=== PATIENT | female | born 1955 | race Caucasian/White ===

== ENCOUNTER 2024-08-25 16:53 | Inpatient (IN) ==
[2024-08-25] MEDS: cefTRIAXone 2 GM in DEXTROSE 5% IN WATER 50 ML IV ONE (18:20)
[2024-08-25] MEDS: metroNIDAZOLE 500 MG/100 ML BAG IV ONE (18:22)
[2024-08-25] MEDS: 0.9 % SODIUM CHLORIDE 1,000 ML IV SCH (18:23)
[2024-08-25] MEDS ORDERED: HYDROmorphone 0.5 MG/0.5 ML SYRINGE IV PRN (20:39)
[2024-08-25] MEDS: ACETAMINOPHEN 1,000 MG/100 ML BAG IV SCH (22:18)
[2024-08-25] MEDS: cefTRIAXone 1 GM VIAL ONE (23:03)
[2024-08-25] MEDS: METRONIDAZOLE IV ONE (23:03)
[2024-08-25] MEDS: cefTRIAXone 2 GM in DEXTROSE 5% IN WATER 50 ML IV SCH (23:04)
[2024-08-25] MEDS: metroNIDAZOLE 500 MG/100 ML BAG IV SCH (23:44)
[2024-08-26] MEDS: cefTRIAXone 2 GM in DEXTROSE 5% IN WATER 50 ML IV SCH (05:30)
[2024-08-26 06:05] LABS: Hematocrit 37.1 % (34.1-44.9); Hemoglobin 12.3 g/dL (11.2-15.7); Mean Cell Volume 91.4 fL (80.0-100.0); Mean Corpuscular HGB Conc 33.2 g/dL (31.0-36.0); Mean Platelet Volume 9.4 fL (8.8-12.5); Platelet Count 296 K/mcL (140-440); RBC 4.06 M/mcL (3.59-5.38); Red Cell Distribution Width 12.3 % (11.5-14.5)
[2024-08-26 09:02] LABS: Eosinophils % (Manual) 2 % (0-7); Lymphocytes % 28 % (15-49); Monocytes % (Manual) 3 % (1-12); Platelet Estimate NORMAL (Normal); RBC Morphology NORMAL (Normal); Segmented Neutrophils % 67 % (38-78)
[2024-08-26] MEDS: LISINOPRIL 20 MG TABLET PO SCH (20:27)
[2024-08-27] MEDS: ONDANSETRON 4 MG/2 ML VIAL IV PRN (03:51)
[2024-08-27] MEDS: HYDROCHLOROTHIAZIDE 25 MG TABLET PO SCH (08:15)
[2024-08-27] MEDS: ESTRADIOL 1 MG TABLET PO SCH (08:15)
[2024-08-27] MEDS: cefTRIAXone 2 GM in DEXTROSE 5% IN WATER 50 ML IV SCH (08:19)
[2024-08-27] MEDS ORDERED: PROPOFOL 200 MG/20 ML VIAL IV ONE (10:11)
[2024-08-27] MEDS ORDERED: SUGAMMADEX SODIUM 200 MG/2 ML VIAL IV ONE ×2 (10:11→12:08)
[2024-08-27] MEDS ORDERED: fentaNYL 100 MCG/2 ML VIAL ONE (10:11)
[2024-08-27] MEDS ORDERED: HYDROmorphone 0.5 MG/0.5 ML SYRINGE ONE (10:11)
[2024-08-27] MEDS ORDERED: DEXAMETHASONE 10 MG/ML VIAL ONE (10:13)
[2024-08-27] MEDS ORDERED: ONDANSETRON 4 MG/2 ML VIAL ONE (10:13)
[2024-08-27] MEDS ORDERED: LIDOCAINE 2% PF 5 ML VIAL ONE (10:13)
[2024-08-27] MEDS ORDERED: GLYCOPYRROLATE 0.2 MG/ML VIAL IV ONE (10:13)
[2024-08-27] MEDS ORDERED: ROCURONIUM 10 MG/ML ML IV ONE ×2 (10:13→11:45)
[2024-08-27] MEDS ORDERED: FAMOTIDINE/PF 20 MG/2 ML VIAL IV ONE (11:13)
[2024-08-27] MEDS ORDERED: KETAMINE 50 MG/ML Syringe IV ONE (11:14)
[2024-08-27] MEDS ORDERED: ePHEDrine 50 MG/5 ML SYRINGE (ANEST) IV ONE (11:16)
[2024-08-27] MEDS ORDERED: PHENYLephrine 1 MG/10 ML SYRINGE (ANEST) ONE (11:27)
[2024-08-27] MEDS ORDERED: ONDANSETRON 4 MG/2 ML VIAL IV PRN (11:34)
[2024-08-27] MEDS ORDERED: fentaNYL 100 MCG/2 ML VIAL IV PRN (11:34)
[2024-08-27] MEDS ORDERED: IPRATROPIUM/ALBUTEROL 3 ML AMPUL.NEB NEB PRN (11:34)
[2024-08-27] MEDS ORDERED: MAGNESIUM SULFATE 2 GM/50 ML BAG IV ONE (11:36)
[2024-08-27] MEDS: METOCLOPRAMIDE 10 MG/2 ML VIAL IV ONE (13:48)
[2024-08-27] MEDS: METOCLOPRAMIDE 10 MG/2 ML VIAL IV SCH (18:11)
[2024-08-28 05:52] LABS: Basophils # (Auto) 0.01 K/mcL (0.00-0.30); Basophils % (Auto) 0.1 % (0.0-2.0); Eosinophils # (Auto) 0 K/mcL (0.00-0.70); Eosinophils % (Auto) 0 % (0.0-7.0); Hematocrit 35.2 % (34.1-44.9); Hemoglobin 11.7 g/dL (11.2-15.7); Lymphocytes # (Auto) 1.02 K/mcL (1.50-4.80); Lymphocytes % (Auto) 8.1 % (15.5-49.0); Mean Cell Volume 92.1 fL (80.0-100.0); Mean Corpuscular HGB Conc 33.2 g/dL (31.0-36.0); Mean Platelet Volume 9.7 fL (8.8-12.5); Monocytes # (Auto) 0.58 K/mcL (0.10-0.90); Monocytes % (Auto) 4.6 % (1.0-12.0); Neutrophils % (Auto) 86.9 % (38.0-78.0); Platelet Count 306 K/mcL (140-440); RBC 3.82 M/mcL (3.59-5.38); WBC 12.6 K/mcL (4.5-11.0)
[2024-08-28] MEDS: LACTATED RINGERS 1,000 ML IV SCH (09:54)
[2024-08-28 12:03] VITALS: TEMP 97.2; O2SAT 96
== END 2024-08-28 14:18 | disposition home or self-care (01) | DRG 399 ==
LOC: ED 16:53 → MEDSUR 16:53
PROVIDERS: ADMIT Family Medicine Adult Medicine; ATTEND Family Medicine Adult Medicine
PROC: LAPAPPY (ICD-10-PCS; 2024-08-27 11:05)